=== PATIENT | female | born 1965 | race Caucasian/White ===

== ENCOUNTER 2021-06-26 11:07 | Emergency (ER) | payer SELFPAY ==
[2021-06-26 11:15] VITALS: BP 164/89; PULSE 68; RESP 14; TEMP 36.7; O2SAT 100; BMI 49.8
[2021-06-26 11:22] VITALS: BP 164/89; PULSE 65; O2SAT 100
--- NOTE | 2021-06-26 11:32 | W.ED.BACK ---
HPI - Back Pain/Injury General: Chief Complaint: Back Pain/Injury Stated Complaint: LOW BACK PAIN Time Seen by Provider: 06/26/21 11:10 History of Present Illness: 56-year-old female who presents to the emergency room with complaint of low back pain. Back pain radiates down into her right leg she denies any loss of bowel or bladder control Sneider urinary retention. Pain began a couple of days ago after she bent over and is progressively worsened since then she said driving for period of time seem to worsen it as well and she woke up this morning and was barely able to move. She has had some numbness and tingling into the left foot. MD elicited complaint: back pain Pertinent past history: prior back pain Timing: constant Severity: moderate Similar Symptoms Previously: Yes Quality: sharp Location: lumbar spine Radiation: left upper leg and left leg below the knee Exacerbating factors: movement, sitting upright and walking Context: bending (Initially began several days ago after she bent over to pick something up and she felt a twinge in her back.) Associated symptoms: Deny abdominal pain, chills, dysuria, fatigue, fever(s), nausea, urinary urgency or vomiting Review of Systems Const: Denies: fever(s), chills, body aches, change in appetite, fatigue or malaise ENMT: Denies: throat pain, ear or mastoid pain, nasal discharge or nasal congestion Card: Denies: chest pain, edema, dyspnea on exertion or orthopnea Resp: Denies: dyspnea, productive cough or non-productive cough GI: Denies: abdominal pain, nausea, vomiting, hematemesis, coffee ground emesis, diarrhea, constipation, bloating, hematochezia or melena : Denies: flank pain, difficulty voiding, dysuria, urinary frequency or urinary urgency Skin/Breast: Denies: rash or pruritus PFSH ED PFSH: Medical History No significant past medical history Surgical History No pertinent past surgical history Physical Exam Const: COMMON NORMALS: no acute distress GENERAL APPEARANCE: cooperative and comfortable ORIENTATION/CONSCIOUSNESS: Yes awake, Yes oriented to person, Yes oriented to place and Yes oriented to time HENMT: COMMON NORMALS: normocephalic, atraumatic and hearing grossly normal bilaterally HEAD & SCALP: normocephalic and atraumatic Neck/C-Spine: COMMON NORMALS: no JVD Resp: COMMON NORMALS: normal respiratory effort, No retractions, No use of accessory muscles and clear to auscultation bilaterally AUSCULTATION: clear to auscultation bilaterally Cardio: COMMON NORMALS: no JVD, regular rate, regular rhythm and No murmurs present (Cardio) RATE: regular rate RHYTHM: regular rhythm GI: COMMON NORMALS: Soft to palpation and No hepatosplenomegaly present AUSCULTATION: Yes normoactive bowel sounds PALPATION: Yes Soft to palpation, No Tenderness to palpation present (GI), No Guarding due to palpation present (GI) and Yes No hepatosplenomegaly present Extremity: COMMON NORMALS: normal to inspection, capillary refill normal, no clubbing, cyanosis or edema, no calf tenderness and no pedal edema Neuro: SENSORIUM/ORIENTATION: Yes oriented to person, Yes oriented to place and Yes oriented to time OTHER: Sensation lower extremities normal. Neurovascularly intact patellar tendon +1 of 2 on the left and on the right dorsum plantar flexion strength 5 of 5 Skin: COMMON NORMALS: no rashes or lesions noted GENERAL SKIN EXAM: no rashes or lesions noted Course Vital Signs: Vital signs: Vital Signs Temperature 98.1 F 06/26/21 11:15 Pulse Rate 75 06/26/21 12:47 Respiratory Rate 14 06/26/21 11:15 Blood Pressure 164/89 06/26/21 11:22 Pulse Oximetry 97 06/26/21 12:47 MDM - Back Pain/Injury Medical Decision Making Exams unremarkable for any nerve impingement at this time. I do believe she does have quite a bit of discomfort patient declined IV narcotics. We will discharge her home think this is more musculoskeletal sciatica if it worsens or does not improve recheck with your primary care physician she may need advanced imaging. Discharge Plan Discharge Patient Disposition: Home Clinical Impression: Lumbar radiculopathy Condition: Stable Prescriptions: New dexamethasone 6 mg tablet 6 mg PO DAILY Qty: 7 0RF diclofenac sodium 75 mg tablet,delayed release (DR/EC) 75 mg PO Q12H PRN (Reason: pain) Qty: 20 0RF tizanidine 4 mg capsule 4 mg PO Q6H PRN (Reason: muscle spasticity) Qty: 30 0RF Rx Instructions: do not exceed 3 doses per 24 hrs hydrocodone-acetaminophen 5-325 mg tablet 1 tab PO Q6H PRN (Reason: pain) Qty: 15 0RF Discharge Orders: Discharge ED (Routine); Ordered 06/26/21 Ordered By: Pavel Pickett Discharge Activity: Limit activity as instructed Patient Instructions: Opioid Safety Activity Restrictions/Additional Instructions: Avoid bending lifting or stooping. Do not work below waist level. Recommend following up with your PCP if this is not improved you may need to get advanced imaging such as an MRI. Coding Level of Care Code ED Protection Consultant for Chg Fwd Exam Comprehensive
[2021-06-26] MEDS: dexamethasone 10 mg/mL INJ IM (11:52)
[2021-06-26] MEDS: orphenadrine 30 mg/mL Inj 2 mL 60 MG IVP (11:52)
[2021-06-26] MEDS: ketorolac 30 mg/mL INJ IVP (11:54)
[2021-06-26 12:47] VITALS: PULSE 75; O2SAT 97
== END 2021-06-26 12:48 | disposition home or self-care (01) ==
PROVIDERS: Emergency Provider Family Medicine; PCP Nurse Practitioner Family
DX: M54.16 Radiculopathy, lumbar region (principal)
CPT/HCPCS: 96372; 96374; 96375; 99283; J1100; J1885; J2360